=== PATIENT | male | born 1940 | race Caucasian/White ===

== ENCOUNTER 2024-07-24 11:17 | Inpatient (IN) | payer OTHER ==
[~2024-07-24] VITALS: Ht 167.6 cm; Wt 72.5 kg
--- NOTE | 2024-07-24 11:56 | ED.PDOC ---
History of Present Illness(SKN HPI Comments 84 year old male presents to the ED with chief complaint of toe redness and swelling. Patient reports that he has noticed his right great toe has been experiencing worsening redness, swelling, and pain after stepping on a needle in his carpet 2 days ago. Patient relays that he noticed the tip of the needle was broken off and is not sure where the piece went. Patient states he is unsure when his last Tetanus vaccine was received. Patient denies any numbness, weakness, discharge, bleeding, dizziness, or fever. Time Seen by MD: 11:52 History of Present Illness: Nurses Notes, Medications, Allergies Allergies: Coded Allergies: No Known Drug Allergy (Verified Allergy, Unknown, 07/24/24) Information Source: Patient Mode of Arrival: Ambulatory Severity: Moderate Timing: Days Duration: Since onset Prehospital treatment: None Location: Other (Rt great toe) Mechanism: Spontaneous Onset, Preceding Wound Occurence: Indoors Object: Needle Condition of Object: Dirty Retained Foreign Body: No Wound Type: Puncture Immunization Status of Animal: NA Tetanus: Unknown History of: None Associated Signs and Symptoms: Redness, Swelling, Pain Past Medical History PAST MEDICAL HISTORY: Denies Surgical History: Denies all surgeries Family History Family History: Reviewed,noncontributory to illness Social History Smoker: Non-Smoker Alcohol: Denies ETOH Use Drugs: Denies Drug Use Lives In: Home Constitutional: denies: chills, diaphoresis, fatigue, fever, malaise, sweats, weakness, others EENTM: denies: blurred vision, double vision, ear bleeding, ear discharge, ear drainage, ear pain, ear ringing, eye pain, eye redness, hearing loss, mouth pain, mouth swelling, nasal discharge, nose bleeding, nose congestion, nose pain, photophobia, tearing, throat pain, throat swelling, voice changes, others Respiratory: denies: cough, hemoptysis, orthopnea, SOB at rest, shortness of breath, SOB with excertion, stridor, wheezing, others Cardiovascular: denies: chest pain, dizzy spells, diaphoresis, Dyspnea on exertion, edema, irregular heart beat, left arm pain, lightheadedness, palpitations, PND, syncope, others Gastrointestinal: denies: abdomen distended, abdominal pain, blood streaked bowels, constipated, diarrhea, dysphagia, difficulty swallowing, hematemesis, melena, nausea, poor appetite, poor fluid intake, rectal bleeding, rectal pain, vomiting, others Genitourinary: denies: burning, dysuria, flank pain, frequency, hematuria, incontinence, penile discharge, penile sore, pain, testicle pain, testicle swelling, urgency, others Neurological: denies: dizziness, fainting, headache, left sided numbness, left sided weakness, numbness, paresthesia, pre-existing deficit, right sided numbness, right sided weakness, seizure, speech problems, tingling, tremors, weakness, others Musculoskeletal: reports: others (Rt great toe redness, swelling, and pain); denies: back pain, gout, joint pain, joint swelling, muscle pain, muscle stiffness, neck pain Integumetry: denies: bruises, change in color, change in hair/nails, dryness, laceration, lesions, lumps, rash, wounds, others Allergic/Immunocompromised: denies: Difficulty Healing, Frequent Infections, Hives, Itching, others Hematologic/Lymphatic: denies: anemia, blood clots, easy bleeding, easy bruising, swollen glands, others Endocrine: denies: excessive hunger, excessive sweating, excessive thirst, excessive urination, flushing, intolerance to cold, intolerance to heat, unexplained weight gain, unexplained weight loss, others Psychiatric: denies: anxiety, bipolar disorder, depression, hopeless, panic disorder, schizophrenia, sleepless, suicidal, others All Other Systems: Reviewed and Negative Physical Exam General Appearance: No Apparent Distress, Normal HEENT: Normal ENT Inspection, PERRL/EOMI Neck: Full Range of Motion, Non-Tender, Normal, Normal Inspection Respiratory: Chest Non-Tender, Lungs Clear, No Accessory Muscle Use, No Respiratory Distress, Normal Breath Sounds Cardiovascular: No Edema, No JVD, No Murmur, No Gallop, Normal Peripheral Pulses, Regular Rate/Rhythm Breast Exam: Deferred Gastrointestinal: No Organomegaly, Non Tender, No Pulsatile Mass, Normal Bowel Sounds, Soft Genitalia: Deferred Pelvic: Deferred Rectal: Deferred Extremities: No calf tenderness, Normal capillary refill, Normal range of motion, No pedal edema, Other (Right great toe red and warm with no tracking) Musculoskeletal : Apperance: Normal Neurologic: Alert, contact center analyst II-XII nml as Tested, No Motor Deficits, Normal Affect, Normal Mood, No Sensory Deficits Cerebellar Function: Normal Reflexes: Normal Skin: Dry, Normal Color, Warm Lymphatic: No Adenopathy Was a procedure done? Was a procedure done?: Yes Sedation Sedation?: No Informed consent obtained: Yes Other Procedure Procedure Attempted foreign body removal from the right 1st toe Indication Foreign body of the right 1st toe Anesthetic 3 mL of 1% lidocaine without epinephrine for local infiltration Prep Area draped and prepped in normal sterile fashion using alcohol Success . Removal was unsuccessful as the foreign body was mobile. Informed consent obtained: Yes Risks, benefits, and alternati: Yes Notes Name of procedure: Foreign body removal of the right 1st toe Indication: Removal of foreign body, reduced tightness of infection Description of procedure: Once the area was draped in the normal sterile f ashion an 11 blade was used to create an incision over the palpable mass. As the cavity was explored, CV foreign body was mobile. I requested Radiology assistance. With Radiology's assistance, I continued to have difficulty locating the foreign body as it appeared to be mobile. Procedure was aborted EBL: Less than 3 cc Complications: None Differential Diagnosis (INTG) Differential Diagnosis: Cellulitis X-Ray, Labs, Meds, VS Vital Signs Date Time Temp Pulse Resp B/P (MAP) Pulse Ox O2 Delivery O2 Flow Rate FiO2 07/24/24 14:01 97.6 59 17 151/81 (104) 97 97.6 07/24/24 14:01 59 17 97 Room Air 07/24/24 11:54 99.1 75 18 141/81 (101) 97 Lab Test 07/24/24 12:26 Range/Units White Blood Count 8.4 4.4-10.8 10^3/uL Red Blood Count 4.45 L 4.5-5.90 10^6/uL Hemoglobin 15.0 13.5-17.5 g/dL Hematocrit 43.8 41.0-53.0 % Mean Corpuscular Volume 98.3 80.0-100.0 fL Mean Corpuscular Hemoglobin 33.7 H 28.0-32.0 pg Mean Corpuscular Hemoglobin Concent 34.3 32.0-36.0 g/dL Red Cell Distribution Width 13.5 11.8-14.3 % Platelet Count 192 140-450 10^3/uL Mean Platelet Volume 8.1 6.9-10.8 fL Neutrophils (%) (Auto) 70.2 37.0-80.0 % Lymphocytes (%) (Auto) 17.8 10.0-50.0 % Monocytes (%) (Auto) 11.2 0.0-12.0 % Eosinophils (%) (Auto) 0.5 0.0-7.0 % Basophils (%) (Auto) 0.3 0.0-2.0 % Neutrophils # (Auto) 5.9 1.6-8.6 10 ^3/uL Lymphocytes # (Auto) 1.5 0.4-5.4 10 ^3/uL Monocytes # (Auto) 0.9 0-1.3 10 ^3/uL Eosinophils # (Auto) 0 0-0.8 10 ^3/uL Basophils # (Auto) 0 0-0.2 10 ^3/uL Nucleated Red Blood Cells 0.0 % Sodium Level 140 136-145 mmol/L Potassium Level 3.9 3.5-5.1 mmol/L Chloride Level 107 98-107 mmol/L Carbon Dioxide Level 26 20-31 mmol/L Anion Gap 7 5-15 Blood Urea Nitrogen 14 9-23 mg/dL Creatinine 1.18 0.700-1.30 mg/dL Glomerular Filtration Rate Calc 61 >90 mL/min BUN/Creatinine Ratio 11.9 10.0-20.0 Serum Glucose 118 H 74-106 mg/dL Lactic Acid Level 1.7 0.4-2.0 mmol/L Calcium Level 10.1 8.7-10.4 mg/dL Total Bilirubin 0.7 0.2-1.0 mg/dL Aspartate Amino Transferase (AST) 16 13-40 U/L Alanine Aminotransferase (ALT) 17 7-40 U/L Alkaline Phosphatase 78 46-116 U/L Total Protein 7.3 5.7-8.2 g/dL Albumin 4.6 3.2-4.8 g/dL Current Medications Medications (Trade) Dose Ordered Sig/Maurice Route Start Time Stop Time Status Last Admin Cefazolin Sodium (Ancef Intramuscular) 1 gm ONCE ONCE IM 07/24/24 13:00 07/24/24 13:06 DC 07/24/24 13:54 Right foot XR: There is no evidence of acute fracture or dislocation. Metallic density overlying the 1st proximal phalanx within the subcutaneous tissue. Radiopaque foreign body not excluded. The alignment is anatomical. CT Rt Foot: Findings/impression: There is no evidence of an acute fracture, dislocation, blastic, or lytic lesions. 2.1 cm linear metallic foreign body in the plantar soft tissues of the 1st digit. No evidence of osseous penetration. Mild soft tissue edema of the 1st digit. X-Ray, Labs, Meds, VS Comment This general presents secondary to pain to his right 1st toe with erythema and edema. He was stepped on a he was 3-4 days ago. He was unsure if the needle broke in his foot. Imaging showed a large foreign body within the toe. I attempted and failed at removing it. The patient was given 1 g Ancef IM. The patient will be admitted for removal with fluro assistance Time of 1ST Reevaluation: 12:52 Reevaluation 1ST: Unchanged Patient Education/Counseling: Diagnosis, Treatment Family Education/Counseling: No Family Present Departure 1 Departure Time of Disposition: 16:41 Impression: Primary Impression: Toe pain, right Additional Impressions: Cellulitis Foreign bdy foot/toe-inf Disposition: 51 HOSPICE/MEDICAL FACILITY Admit to: Tele Condition: Fair Critical Care Note Critical Care Time?: No Stability Stability form required: No Heart Score Heart Score: Heart Score Response (Comments) Value History N/A 0 EKG N/A 0 Age N/A 0 Risk Factors N/A 0 Troponin N/A 0 Total 0 I personally scribed for ANNA WILSON MD ([email or web address]) on 07/24/24 at 11:56. Electronically submitted by Ervin Barrientos ([email or web address]). I personally scribed for ANNA WILSON MD ([email or web address]) on 07/24/24 at 12:29. Electronically submitted by Ervin Barrientos ([email or web address]). I personally scribed for ANNA WILSON MD ([email or web address]) on 07/24/24 at 16:33. Electronically submitted by Ervin Barrientos ([email or web address]). ANNA WILSON MD Jul 24, 2024 11:56
--- NOTE | 2024-07-24 12:18 | DVH ---
EXAM: XY R FOOT 3 VIEW XRAY CLINICAL INDICATION: right foot pain TECHNIQUE: XY R FOOT 3 VIEW XRAY Comparison: None FINDINGS/IMPRESSION: There is no evidence of acute fracture or dislocation. Metallic density overlying the 1st proximal phalanx within the subcutaneous tissue. Radiopaque foreig n body not excluded. The alignment is anatomical.
[2024-07-24 12:51] LABS: Basophils # (auto) 0 10 ^3/uL (0-0.2); Basophils % (auto) 0.3 % (0.0-2.0); Eosinophils # (auto) 0 10 ^3/uL (0-0.8); Eosinophils % (auto) 0.5 % (0.0-7.0); Hematocrit 43.8 % (41.0-53.0); Lymphocytes # (auto) 1.5 10 ^3/uL (0.4-5.4); Lymphocytes % (auto) 17.8 % (10.0-50.0); Mean Corpuscular Hemoglobin 33.7 pg (28.0-32.0); Mean Corpuscular Hgb Conc. 34.3 g/dL (32.0-36.0); Mean Corpuscular Volume 98.3 fL (80.0-100.0); Monocytes # (auto) 0.9 10 ^3/uL (0-1.3); Monocytes % (auto) 11.2 % (0.0-12.0); Neutrophils # (auto) 5.9 10 ^3/uL (1.6-8.6); Neutrophils % (auto) 70.2 % (37.0-80.0); Platelet Count (auto) 192 10^3/uL (140-450); Red Blood Cells 4.45 10^6/uL (4.5-5.90); Red Cell Distribution Width 13.5 % (11.8-14.3); White Blood Cell 8.4 10^3/uL (4.4-10.8)
[2024-07-24 13:11] LABS: Alanine Aminotransferase 17 U/L (7-40); Albumin 4.6 g/dL (3.2-4.8); Alkaline Phosphatase 78 U/L (46-116); Anion Gap 7 (5-15); Aspartate Aminotransferase 16 U/L (13-40); BUN/Creatinine Ratio 11.9 (10.0-20.0); Bilirubin, Total 0.7 mg/dL (0.2-1.0); Blood Urea Nitrogen 14 mg/dL (9-23); Calcium 10.1 mg/dL (8.7-10.4); Carbon Dioxide 26 mmol/L (20-31); Chloride 107 mmol/L (98-107); Potassium 3.9 mmol/L (3.5-5.1); Sodium 140 mmol/L (136-145); Total Protein 7.3 g/dL (5.7-8.2)
[2024-07-24 13:12] LABS: Glucose 118 mg/dL (74-106)
[2024-07-24] MEDS: LIDOCAINE 2% (LOCAL ANESTH.) PF 5ml SDV IJ ONE (13:41)
[2024-07-24] MEDS: ceFAZolin IM 1GM/2.5ML STERILE WATER IM ONE (13:54)
--- NOTE | 2024-07-24 15:35 | DVH ---
CLINICAL INDICATION: FB TOE TECHNIQUE: 3 views of the right great toe were performed. XY R FOOT 3 VIEW XRAY Comparison: XY R FOOT 3 VIEW XRAY on DOS: 07/24/24 FINDINGS/IMPRESSION: : 1. Metallic needle identified along the plantar margin of the midportion of the right great toe proxi mal phalanx. 2. No acute fracture of the right great toe. 3. 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
--- NOTE | 2024-07-24 16:14 | DVH ---
EXAM: CT CT R FOOT WO CONTRAST INDICATION: right foot fb EXAM DATE: 07/24/2024 03:35 PM COMPARISON: None TECHNIQUE: Multiple axial CT images of the right foot were obtained using bone algorithm. Axial and c oronal reformatting was done. Bone and soft tissue windows were reviewed. Radiation Dose Information: CT Dose: CTDI volume is 7.75 mGy. Dose-length product is 178.93 mGy*cm Findings/impression: There is no evidence of an acute fracture, dislocation, blastic, or lytic lesions. 2.1 cm linear metallic foreign body in the plantar soft tissues of the 1st digit. No evidence of osse ous penetration. Mild soft tissue edema of the 1st digit.
[2024-07-25] MEDS ORDERED: ONDANSETRON HCL 4 MG/2 ML VIAL IV PRN (00:45)
[2024-07-25] MEDS ORDERED: ACETAMINOPHEN 325 MG TAB PO PRN (00:45)
--- NOTE | 2024-07-25 00:52 | DVHHP2 ---
Admitting Diagnosis: Foreign body to right toe History of Present Illness History Source: Patient Exam Limitations: No limitations HPI Mr. Kenroy Long is an 84 year old male who presents to the hospital with a chief complaint of right toe redness and swelling. Patient reports that he has noticed his right great toe has been experiencing worsening redness, swelling, and pain after stepping on a needle in his carpet 3 days ago. Patient relays that he noticed the tip of the needle was broken off and is not sure where the piece went. Patient states he is unsure when his last Tetanus vaccine was received. Patient denies any numbness, weakness, discharge, bleeding, dizziness, or fever. Past Medical History Cardiac: No pertinent Hx Pulmonary: No pertinent Hx Central Nervous System: No pertinent Hx GI: No pertinent Hx Hemotology/Oncology: No pertinent Hx Hepatobiliary: No pertinent Hx Psychiatric: No pertinent Hx Musculoskeletal: No pertinent Hx Rheumotologic: No pertinent Hx Infectious Disease: No peritnent Hx ENT: No pertinent Hx Renal/: No pertinent Hx Endocrine: No pertinent Hx Dermatology: No pertinent Hx Smoker: No Hx (Negative) Alocohol: None Drugs: None Lives with: With family Domestic Violence: Neg Review of Systems Constitutional: No symptom reported Ears, Nose, & Throat: No symptom reported Eyes: No symptom reported Pulmonary/Respiratory: No symptom reported Cardiovascular: No symptom reported Gastrointestinal: No symptom reported Genitourinary: No symptom reported Musculoskeletal: Other (right firs digit pain, swelling) Skin: No symptom reported Psychiatric: No symptom reported Endocrine: No symptom reported Hemotologic/Lymphatic: No symptom reported H&P Exam Vital Signs Vital Signs Date Time Temp Pulse Resp B/P (MAP) Pulse Ox O2 Delivery O2 Flow Rate FiO2 07/24/24 19:42 98.7 73 149/93 (111) 97 98.7 07/24/24 15:30 Room Air* 0 21 07/24/24 14:01 17 General Appeara: Well developed, Well nourished, Normal Appearance Head Exam: Normal inspection Neck Exam: Normal inspection, Non-tender, Normal alignment Eye Exam: bilateral eye Normal inspection, bilateral eye PERRL, bilateral eye EOMI Ear Exam: bilateral ear Auricle normal Nasal Exam: Normal inspection Mouth: Normal Inspection Pulmonary/Respiratory: Normal inspection, Normal breath sounds, Chest non- tender, Lungs clear Cardiovascular/Chest: Normal inspection, Regular rate, Normal Rhythm Peripheral Pulses: 2+ dorsalis pedis (R), 2+ dorsalis pedis (L), 2+ Radial (R), 2+ Radial (L) Abdominal Exam: Normal bowel sounds, Soft, No tenderness Rectal Exam: Deferred Male Genital Exam: Not done Foot: right foot other (right first digit swelling) 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 Exam: Normal hearing, Normal speech, PERRL Neuro/Mental St: Alert, Oriented Appearance: Appropriate appearance Eye contact/ Speech: Cooperative, Good eye contact, Normal speech Thoughts/Psych: Normal thought pattern Skin Exam: Normal inspection, Normal color, Warm/dry, Other (right foot first digit swelling) Labs/Xrays Labs Test 07/24/24 12:26 Range/Units White Blood Count 8.4 4.4-10.8 10^3/uL Red Blood Count 4.45 L 4.5-5.90 10^6/uL Hemoglobin 15.0 13.5-17.5 g/dL Hematocrit 43.8 41.0-53.0 % Mean Corpuscular Volume 98.3 80.0-100.0 fL Mean Corpuscular Hemoglobin 33.7 H 28.0-32.0 pg Mean Corpuscular Hemoglobin Concent 34.3 32.0-36.0 g/dL Red Cell Distribution Width 13.5 11.8-14.3 % Platelet Count 192 140-450 10^3/uL Mean Platelet Volume 8.1 6.9-10.8 fL Neutrophils (%) (Auto) 70.2 37.0-80.0 % Lymphocytes (%) (Auto) 17.8 10.0-50.0 % Monocytes (%) (Auto) 11.2 0.0-12.0 % Eosinophils (%) (Auto) 0.5 0.0-7.0 % Basophils (%) (Auto) 0.3 0.0-2.0 % Neutrophils # (Auto) 5.9 1.6-8.6 10 ^3/uL Lymphocytes # (Auto) 1.5 0.4-5.4 10 ^3/uL Monocytes # (Auto) 0.9 0-1.3 10 ^3/uL Eosinophils # (Auto) 0 0-0.8 10 ^3/uL Basophils # (Auto) 0 0-0.2 10 ^3/uL Nucleated Red Blood Cells 0.0 % Sodium Level 140 136-145 mmol/L Potassium Level 3.9 3.5-5.1 mmol/L Chloride Level 107 98-107 mmol/L Carbon Dioxide Level 26 20-31 mmol/L Anion Gap 7 5-15 Blood Urea Nitrogen 14 9-23 mg/dL Creatinine 1.18 0.700-1.30 mg/dL Glomerular Filtration Rate Calc 61 >90 mL/min BUN/Creatinine Ratio 11.9 10.0-20.0 Serum Glucose 118 H 74-106 mg/dL Lactic Acid Level 1.7 0.4-2.0 mmol/L Calcium Level 10.1 8.7-10.4 mg/dL Total Bilirubin 0.7 0.2-1.0 mg/dL Aspartate Amino Transferase (AST) 16 13-40 U/L Alanine Aminotransferase (ALT) 17 7-40 U/L Alkaline Phosphatase 78 46-116 U/L Total Protein 7.3 5.7-8.2 g/dL Albumin 4.6 3.2-4.8 g/dL Assessment/Plan Problem List: (1) Foreign bdy foot/toe-inf (2) Toe pain, right Plan This is an 84 yo male with a history of BPH , who presents to the hospital with pain , swelling, erythema to right big toe status post stepping on a needle x 3 days ago. Patient found to have 1. Foreign object to right foot first digit 2. Pain with erythema to foot first digit PLAN Admit Med Surgical unit Podiatry consultation Empiric IV antibiotic Clindamycin GI prophylaxis Pepcid DVT prophylaxis Lovenox Discussed all above with patient who verbalizes agreement and understanding of care plan. All questions were answered. Discussed assessment and care plan with supervising MD. Plan discussed with: Patient, Other Code Visit Code Visit Total Time (mins): 45 Additional Comments Additional Comments Additional Comments Patient is currently in OR. Plan of care discussed with the bedside nurse who will call me for any orders. I agree with current assessment and plan as outlined by my nurse practitioner JOSE ANTONIO ROUSSEAU Jul 25, 2024 00:52 DARREN FRAZIER MD Jul 25, 2024 16:37
[2024-07-25] MEDS ORDERED: hydrALAZINE HCL 20 MG/ML VL IV PRN (01:00)
[2024-07-25] MEDS: CLINDAMYCIN 600MG IV 50 ML IV SCH (02:25)
[2024-07-25 02:56] VITALS: BP 147/86; PULSE 81; RESP 19; TEMP 92.5; TEMP 97.8; O2SAT 96
[2024-07-25 05:00] VITALS: BP 138/76; PULSE 76; RESP 19; TEMP 97.9; O2SAT 98
[2024-07-25] MEDS: PANTOPRAZOLE 40 MG/10 ML VIAL INJ IV SCH (08:23)
[2024-07-25] MEDS: ENOXAPARIN SOD 40 MG/0.4 ML SYRINGE SC SCH (08:26)
[2024-07-25] MEDS ORDERED: FAMOTIDINE 20 MG TAB PO SCH (10:00)
[2024-07-25 13:00] VITALS: BP 142/79; PULSE 77; RESP 20; TEMP 98.1; O2SAT 97
--- NOTE | 2024-07-25 14:47 | DVHINCON2 ---
Date Seen: Jul 25, 2024 Reason for Consultation Foreign body right foot History of Present Illness Mr. Kenroy Long is an 84 year old male who presents to the hospital with a chief complaint of right toe redness and swelling. Patient reports that he has noticed his right great toe has been experiencing worsening redness, swelling, and pain after stepping on a needle in his carpet 3 days ago. Patient relays that he noticed the tip of the needle was broken off and is not sure where the piece went. Patient states he is unsure when his last Tetanus vaccine was received. Patient denies any numbness, weakness, discharge, bleeding, dizziness, or fever. Past Medical History See H&P Past Surgical History See H&P Family History: Cerebrovascular accident (CVA) G8 MOTHER Allergies: Coded Allergies: No Known Drug Allergy (Verified Allergy, Unknown, 07/24/24) Current Medications Current Medications Medications (Trade) Dose Ordered Sig/Maurice Route PRN Reason Start Time Stop Time Status Last Admin Ondansetron HCl (Zofran) 4 mg Q6HPRN PRN IV NAUSEA / VOMITING 07/25/24 00:45 Clindamycin Phosphate 50 ml @ 50 mls/hr Q8HR@0100,0900,1700 IV 07/25/24 01:00 07/25/24 08:23 Enoxaparin Sodium (Lovenox) 40 mg DAILY SC 07/25/24 10:00 Acetaminophen/ Hydrocodone Bitart (Chandler 5/325MG Tab) 1 tab Q6HPRN PRN PO PAIN SCALE 1 THRU 6 07/25/24 00:45 Famotidine (Pepcid Tablet) 20 mg BID PO 07/25/24 10:00 07/25/24 05:43 DC Acetaminophen (Tylenol Tablet) 650 mg Q6HPRN PRN PO TEMP GREATER THAN 100.4 07/25/24 00:45 Hydralazine HCl (Apresoline Injection) 10 mg Q6HPRN PRN IV SBP>160 07/25/24 01:00 Tamsulosin HCl (Flomax) 0.4 mg QPM PO 07/25/24 18:00 Pantoprazole Sodium (Protonix) 40 mg DAILY IV 07/25/24 10:00 07/25/24 08:23 Vital Signs Vital Signs Date Time Temp Pulse Resp B/P (MAP) Pulse Ox O2 Delivery O2 Flow Rate FiO2 07/25/24 13:00 98.1 77 20 142/79 (100) 97 98.1 07/25/24 08:00 Room Air* 0 21 Physical Exam DERMATOLOGIC EXAM: - Skin is warm, smooth, and supple bilaterally. - No erythema noted to the foot and ankle bilaterally. - No hyperkeratotic lesions noted bilaterally. - No other discolorations, lesions, or open wounds noted bilaterally. - open incision on the right plantar hallux VASCULAR EXAM: - DP and PT pulses are palpable bilaterally. - BIOMEDICAL EQUIPMENT TECH is brisk to all digits. - No edema noted to the leg, foot, and ankle bilaterally. NEUROLOGIC EXAM: - Normal light touch sensation to the superficial peroneal, deep peroneal, sural, saphenous, and tibial nerve branches. - Protective sensation is intact as tested with a 5.07 10g [place]-Massiel Monofilament bilaterally. - No paresthesia noted on percussion of Tibial Nerve in the Tarsal Tunnel bilaterally. MUSCULOSKELETAL EXAM: - There is tenderness with - Muscle strength is 5/5 and active motion is pain-free and symmetrical bilaterally with plantarflexion, dorsiflexion, abduction, adduction, inversion, and eversion against resistance. - No pain or crepitus with passive range of motion bilaterally to all major pedal joints. Labs/Diagnostic Data Labs Test 07/24/24 12:26 Range/Units White Blood Count 8.4 4.4-10.8 10^3/uL Red Blood Count 4.45 L 4.5-5.90 10^6/uL Hemoglobin 15.0 13.5-17.5 g/dL Hematocrit 43.8 41.0-53.0 % Mean Corpuscular Volume 98.3 80.0-100.0 fL Mean Corpuscular Hemoglobin 33.7 H 28.0-32.0 pg Mean Corpuscular Hemoglobin Concent 34.3 32.0-36.0 g/dL Red Cell Distribution Width 13.5 11.8-14.3 % Platelet Count 192 140-450 10^3/uL Mean Platelet Volume 8.1 6.9-10.8 fL Neutrophils (%) (Auto) 70.2 37.0-80.0 % Lymphocytes (%) (Auto) 17.8 10.0-50.0 % Monocytes (%) (Auto) 11.2 0.0-12.0 % Eosinophils (%) (Auto) 0.5 0.0-7.0 % Basophils (%) (Auto) 0.3 0.0-2.0 % Neutrophils # (Auto) 5.9 1.6-8.6 10 ^3/uL Lymphocytes # (Auto) 1.5 0.4-5.4 10 ^3/uL Monocytes # (Auto) 0.9 0-1.3 10 ^3/uL Eosinophils # (Auto) 0 0-0.8 10 ^3/uL Basophils # (Auto) 0 0-0.2 10 ^3/uL Nucleated Red Blood Cells 0.0 % Sodium Level 140 136-145 mmol/L Potassium Level 3.9 3.5-5.1 mmol/L Chloride Level 107 98-107 mmol/L Carbon Dioxide Level 26 20-31 mmol/L Anion Gap 7 5-15 Blood Urea Nitrogen 14 9-23 mg/dL Creatinine 1.18 0.700-1.30 mg/dL Glomerular Filtration Rate Calc 61 >90 mL/min BUN/Creatinine Ratio 11.9 10.0-20.0 Serum Glucose 118 H 74-106 mg/dL Lactic Acid Level 1.7 0.4-2.0 mmol/L Calcium Level 10.1 8.7-10.4 mg/dL Total Bilirubin 0.7 0.2-1.0 mg/dL Aspartate Amino Transferase (AST) 16 13-40 U/L Alanine Aminotransferase (ALT) 17 7-40 U/L Alkaline Phosphatase 78 46-116 U/L Total Protein 7.3 5.7-8.2 g/dL Albumin 4.6 3.2-4.8 g/dL Microbiology Date/Time Source Procedure Growth Status 07/24/24 12:26 Blood Blood Culture - Preliminary NO GROWTH AFTER 24 HOURS OF INCUBATION. Resulted Problems(with codes): (1) Cellulitis (2) Foreign bdy foot/toe-inf (3) Toe pain, right (4) Family history of cerebrovascular accident (CVA) Plan/Recommendation ASSESSMENT: Patient is a year old seen on the floor right foot foreign body PLAN: - The patients chart was reviewed, clinical findings were discussed with the patient, the etiologies of the conditions were discussed in detail, and a treatment plan was agreed to at this time, with both oral and written instructions provided. - reviewed advanced imaging - discussed plan is to perform right foot foreign body removal - we will do it under local - take him to the OR today - can weightbear as tolerated in postoperative shoe All questions were answered and concerns addressed to the patient's satisfaction. The patient was given the phone number to the clinic and was told how to make contact with the clinic should any concerns or questions arise. Patient understands that if any questions or concerns arise prior to the next appointment, we should be contacted immediately. FOLLOW-UP: Continue to follow while inpatient Plan discussed with: Patient Date of Service: Jul 25, 2024 Billing Provider: ELKE DODGE DPM Common Visit Codes: [id number] INP/OBS CARE(HIGH) ELKE DODGE DPM Jul 25, 2024 14:47
--- NOTE | 2024-07-25 15:08 | DVHOP2 ---
Operative Report - 2 Report Details Date: 07/25/24 Preop Diagnosis: 1. Right foot foreign body Postop Diagnosis: Same as preop Surgeon: Elke Dodge MD Anesthesiologist: None Anesthesia: Local Consent: The patient was informed of the risks and benefits of the procedure. These include but are not limited to complications of anesthesia, postoperative infection, incomplete relief of symptoms, recurrence of symptoms, damage to blood vessels, nerves and tendons, deep venous thrombosis, pulmonary embolism and possible need for repeat surgery in the future. Complications: None Estimated Blood Loss: Minimal Fluids: See anesthesia Findings: Proximally 1 in long needle Indications for Surgery: Foreign body Name of Procedure Performed 1. Right foot foreign body removal (70372) Procedure Details Procedure Details: PRE-PROCEDURE INFORMATION: In the pre-op holding area, the extremity to be operated on was clearly marked and the patient verified correct laterality of the marking. The patient was transferred to the OR table and placed in a supine position. A timeout was performed in which identification of the correct patient, procedure, location, and materials was done. The right foot and leg were prepped and draped in normal sterile fashion. DESCRIPTION OF PROCEDURE: Attention was directed to the right medial plantar hallux where a small incision was made with a 15 blade. Using blunt and sharp dissection, the incision was deepened to the level of the needle. Care was taken throughout the dissection to avoid any neurovascular tendinous structures. Once the needle was identified, the needle was removed in its entirety using a hemostat. Using intraoperative fluoroscopy, an x-ray was taken to verify all of the needle was removed. The wound was then closed with 2-0 nylon. All surgical wounds were irrigated copiously with saline and closed in layers with the aforementioned suture material. A dry sterile dressing was placed on the surgical extremity. The patient was placed in a postop shoe. POSTOPERATIVE INFORMATION: The patient tolerated the above noted procedure and anesthesia well and was transferred to the PACU with vital signs stable, and vascular status intact with capillary refill intact to all digits. Patient can be discharged home on p.o. antibiotics for 2 weeks. Patient will follow up with me in about 2 weeks. Patient can weightbear as tolerated in a postoperative shoe. Condition Good Disposition Still a Patient ELKE DODGE DPM Jul 25, 2024 15:08
[2024-07-25 17:00] VITALS: BP 138/89; PULSE 88; RESP 18; TEMP 98.1; O2SAT 90
[2024-07-25] MEDS: BUPIVACAINE HCL 0 ML ONE (17:07)
[2024-07-25] MEDS: TAMSULOSIN HYDROCHLORIDE 0.4 MG CAP PO SCH (17:42)
[2024-07-25 21:00] VITALS: BP 134/68; PULSE 88; RESP 20; TEMP 98.2; O2SAT 95
[2024-07-26 01:00] VITALS: BP 122/60; PULSE 76; RESP 19; TEMP 98.2; O2SAT 96
[2024-07-26] MEDS: HYDROcodone-ACET 5/325MG TAB PO PRN (04:18)
[2024-07-26 05:00] VITALS: BP_SYST 129; BP_SYST 131; BP_DIAS 71; BP_DIAS 84; PULSE 70; PULSE 81; RESP 18; RESP 19; TEMP 97.6; TEMP 98.1; O2SAT 93; O2SAT 96
[2024-07-26 09:00] VITALS: BP 114/79; PULSE 94; RESP 20; TEMP 98.1; O2SAT 93
[2024-07-26 13:00] VITALS: BP 133/73; PULSE 88; RESP 18; TEMP 98.3; O2SAT 94
[2024-07-26 17:00] VITALS: BP 131/71; PULSE 70; RESP 18; TEMP 98.1; O2SAT 92
[2024-07-26] MEDS ORDERED: DOXY100C79 PO (17:09)
[2024-07-26] MEDS ORDERED: CEPH500C PO (17:09)
--- NOTE | 2024-07-26 17:11 | DVHDS2 ---
Discharge Summary Date of Admission Jul 25, 2024 at 00:37 Date of Discharge: Jul 26, 2024 Labs/Diagnostic Data: Laboratory Results Test 07/24/24 12:26 White Blood Count 8.4 10^3/uL (4.4-10.8) Red Blood Count 4.45 10^6/uL (4.5-5.90) Hemoglobin 15.0 g/dL (13.5-17.5) Hematocrit 43.8 % (41.0-53.0) Mean Corpuscular Volume 98.3 fL (80.0-100.0) Mean Corpuscular Hemoglobin 33.7 pg (28.0-32.0) Mean Corpuscular Hemoglobin Concent 34.3 g/dL (32.0-36.0) Red Cell Distribution Width 13.5 % (11.8-14.3) Platelet Count 192 10^3/uL (140-450) Mean Platelet Volume 8.1 fL (6.9-10.8) Neutrophils (%) (Auto) 70.2 % (37.0-80.0) Lymphocytes (%) (Auto) 17.8 % (10.0-50.0) Monocytes (%) (Auto) 11.2 % (0.0-12.0) Eosinophils (%) (Auto) 0.5 % (0.0-7.0) Basophils (%) (Auto) 0.3 % (0.0-2.0) Neutrophils # (Auto) 5.9 10 ^3/uL (1.6-8.6) Lymphocytes # (Auto) 1.5 10 ^3/uL (0.4-5.4) Monocytes # (Auto) 0.9 10 ^3/uL (0-1.3) Eosinophils # (Auto) 0 10 ^3/uL (0-0.8) Basophils # (Auto) 0 10 ^3/uL (0-0.2) Nucleated Red Blood Cells 0.0 % Sodium Level 140 mmol/L (136-145) Potassium Level 3.9 mmol/L (3.5-5.1) Chloride Level 107 mmol/L (98-107) Carbon Dioxide Level 26 mmol/L (20-31) Anion Gap 7 (5-15) Blood Urea Nitrogen 14 mg/dL (9-23) Creatinine 1.18 mg/dL (0.700-1.30) Glomerular Filtration Rate Calc 61 mL/min (>90) BUN/Creatinine Ratio 11.9 (10.0-20.0) Serum Glucose 118 mg/dL (74-106) Lactic Acid Level 1.7 mmol/L (0.4-2.0) Calcium Level 10.1 mg/dL (8.7-10.4) Total Bilirubin 0.7 mg/dL (0.2-1.0) Aspartate Amino Transferase (AST) 16 U/L (13-40) Alanine Aminotransferase (ALT) 17 U/L (7-40) Alkaline Phosphatase 78 U/L (46-116) Total Protein 7.3 g/dL (5.7-8.2) Albumin 4.6 g/dL (3.2-4.8) Other Laboratory Tests 07/24/24 12:26 Condition at Discharge: Good Final Diagnosis/Problems List 1. Right Foot foreign body status post removal in the OR 2. Cellulitis of the right foot Discharge Disposition: Home Discharge Instruct/Medications Diet: Cardiac 2g Na,low cholest Activity: See Comment Activity comment: Be weight-bearing as tolerated on the right foot Follow Up/Referral: Follow with PCP in one week Follow up with Podiatry Services in one week Medications: Doxycycline and Keflex for two weeks as prescribed Discharge Statement: "Patient was advised to return to the ER or call 911 if any headaches, dizziness, shortness of breath, chest pain, abdominal pain, bleeding, fevers, or worsening of medical condition. Patient was counseled about treatment plan, medications, possible side effects, patientverbalized understanding. All questions were answered to the best of my ability. This discharge took greater then 30 minutes in planning, reviewing documentation, counseling the patient, and discussing with other team members." ASSESSMENT ASSESSMENT Assessment 1. Right Foot foreign body status post removal in the OR 2. Cellulitis of the right foot DARREN FRAZIER MD Jul 26, 2024 17:11
[2024-07-26 17:28] VITALS: BP 114/79; PULSE 94; RESP 20; TEMP 98.1
[2024-07-26] MEDS ORDERED: CEFD300C2 PO (17:35)
== END 2024-07-26 18:13 | disposition home or self-care (01) | DRG 605 ==
LOC: ER 11:17 → OVERFLOW 07-25 00:37 → WEST WING 07-25 03:00
PROVIDERS: ADMIT Nurse Practitioner Family; ATTEND Nurse Practitioner Family
PROC: 0HCMXZZ Extirpation of Matter from Right Foot Skin, External Approach (ICD-10-PCS; principal; 2024-07-25 14:44)
DX: S90.851A Superficial foreign body, right foot, initial encounter (principal); L03.115 Cellulitis of right lower limb; N40.0 Benign prostatic hyperplasia without lower urinary tract symptoms; W45.8XXA Other foreign body or object entering through skin, initial encounter; Z82.3 Family history of stroke; Y93.89 Activity, other specified; Y92.89 Other specified places as the place of occurrence of the external cause; Y99.8 Other external cause status; Z87.891 Personal history of nicotine dependence
CPT/HCPCS: 36415; 73630; 73700; 80053; 83605; 85025; 87040; 96372; G0378; J0690; J2003; J2470; J3490